=== PATIENT | male | born 1975 | race Two or more races ===

== ENCOUNTER 2020-09-11 05:33 | Day surgery (SDC) | payer OTHER ==
[2020-09-11] MEDS ORDERED: ULTRACET PO (08:26)
== END 2020-09-11 16:21 | disposition home or self-care (01) ==
LOC: CIR.AMB 05:33
PROVIDERS: ATTEND Surgery
DX: K60.1 Chronic anal fissure (principal); Z20.822 Contact with and (suspected) exposure to COVID-19

== ENCOUNTER 2020-11-27 05:20 | Day surgery (SDC) | payer OTHER ==
[~2020-11-27 05:20] MED LIST: SYNTHROID150 MCG PO; ULTRACET PO
[2020-11-27] MEDS ORDERED: COLACE100 MG PO (08:56)
[2020-11-27] MEDS ORDERED: PERCOCET 5-3251 EACH PO (08:56)
== END 2020-11-27 13:10 | disposition home or self-care (01) ==
LOC: CIR.AMB 05:20
PROVIDERS: ATTEND Surgery
DX: K60.1 Chronic anal fissure (principal); Z20.822 Contact with and (suspected) exposure to COVID-19